=== PATIENT | female | born 1980 | race Caucasian/White ===

== ENCOUNTER 2016-06-18 13:19 | Emergency (ER) | payer OTHER ==
[~2016-06-18] VITALS: Ht 172.7 cm; Wt 97.2 kg
[~2016-06-18 13:19] MED LIST: ADDERALL15 MG PO; ADDERALL20 MG PO; ASPIRIN325 MG PO; AUGMENTIN500 MG PO; BENADRYL A12.5 MG/5 PO; BENTYL10 MG PO; GENTAK3.5 GM RIGHT EYE; LORTAB 5-325 M1 EACH PO; MEDROL DOSEPAK4 MG PO; MELATONIN5 M1 PO; MOBIC15 MG PO; NEURONTIN100 MG PO; PERCOCET 5/31 TABLET PO; PRENATAL TABLE1 EAC3 PO; SERTRALINE HCL25 MG PO; TRILEPTAL600 MG PO; ZANTAC150 MG PO
[2016-06-18] MEDS ORDERED: PERCOCET 5/31 TABLET PO (15:10)
[2016-06-18 16:00] VITALS: BP 114/72
== END 2016-06-18 16:15 | disposition home or self-care (01) ==
LOC: EME → EXP 13:19 → EME 13:19 → EDBD 13:19 → EXP 16:15
PROC: 0RSJXZZ Reposition Right Shoulder Joint, External Approach (ICD-10-PCS; principal; 2016-06-18)
DX: S43.084A Other dislocation of right shoulder joint, initial encounter (principal); W06.XXXA Fall from bed, initial encounter; Y93.89 Activity, other specified
CPT/HCPCS: 73030; 99281; 99285; J3010

== ENCOUNTER 2016-08-23 22:08 | Emergency (ER) | payer OTHER ==
[~2016-08-23] VITALS: Ht 172.7 cm; Wt 95.4 kg
[2016-08-24] MEDS ORDERED: NORCO 5/3251 TABLET PO (05:18)
[2016-08-24 07:37] VITALS: BP 136/70
== END 2016-08-24 07:38 | disposition home or self-care (01) ==
LOC: EME 22:08
PROC: 0RSJXZZ Reposition Right Shoulder Joint, External Approach (ICD-10-PCS; principal; 2016-08-24)
DX: S43.004A Unspecified dislocation of right shoulder joint, initial encounter (principal); Y09 Assault by unspecified means
CPT/HCPCS: 73030; 99281; 99285; J2405; J2550; J3010; S0020

== ENCOUNTER 2017-05-22 17:27 | Emergency (ER) | payer OTHER ==
[~2017-05-22] VITALS: Ht 172.7 cm; Wt 80.1 kg
[~2017-05-22 17:27] MED LIST changes: +NORCO 5/3251 TABLET PO
[2017-05-22 18:09] LABS: HEMOGLOBIN 14.5 G/DL (11.9-15.5); MCHC 34.5 G/DL (30.0-36.0); MCV 92.7 FL (83-99); PLATELET COUNT 241 K/uL (156-360); RBC DIS.WIDTH-CV 12.5 % (11.8-14.6); RBC DIS.WIDTH-SD 42.8 % (39-53); RED BLOOD COUNT 4.53 M/uL (3.80-5.20); WHITE BLOOD COUNT 8.6 K/uL (4.1-10.2)
[2017-05-22 18:18] LABS: ALBUMIN 4.1 g/dL (3.2-4.8); CHLORIDE 105 mEq/L (99-109); POTASSIUM 3.6 mEq/L (3.7-5.4); SODIUM 140 mEq/L (136-147)
[2017-05-22 18:20] LABS: GLUCOSE 106 mg/dL (70-99); TOTAL PROTEIN 7.4 g/dL (6.4-8.3)
[2017-05-22 18:22] LABS: TOTAL BILIRUBIN 0.8 mg/dL (0.0-1.0)
[2017-05-22 18:23] LABS: SERUM ETHYL ALCOHOL < 10 mg/dL
[2017-05-22 18:24] LABS: ALKALINE PHOSPHATASE 39 IU/L (3-129); CREATININE 0.8 mg/dL (0.6-1.3); GFR ESTIMATE (CALCULATED) > 59 mL/min/
[2017-05-22 18:25] LABS: UREA NITROGEN (BUN) 13 mg/dL (9-23)
[2017-05-22 18:26] LABS: AST (GOT) 14 IU/L (2-34)
[2017-05-22 18:27] LABS: ALT (GPT) 14 IU/L (3-49)
[2017-05-22 18:33] LABS: QUANTITATIVE HCG < 4.0 MIU/ML
[2017-05-23] MEDS ORDERED: AUGMENTIN875 MG PO (16:40)
[2017-05-23] MEDS ORDERED: ZOLOFT100 MG PO (16:43)
[2017-05-23 17:53] VITALS: BP 119/73
[2017-05-23] MEDS ORDERED: TRAZODONE HCL50 MG PO (19:16)
== END 2017-05-22 21:50 | disposition home or self-care (01) ==
LOC: EME 17:27 → ENRESERV 05-23 16:31 → EME 05-23 17:04 → 1WEST 05-23 17:04
PROVIDERS: Emergency Medicine
DX: F43.20 Adjustment disorder, unspecified (principal); F31.9 Bipolar disorder, unspecified; F12.20 Cannabis dependence, uncomplicated; Z04.6 Encounter for general psychiatric examination, requested by authority; F43.10 Post-traumatic stress disorder, unspecified
CPT/HCPCS: 80053; 81003; 84702; 85027; 90837; 99281; 99285; G0480

== ENCOUNTER 2017-05-23 12:23 | Inpatient (IN) | payer OTHER ==
[~2017-05-23] VITALS: Ht 172.7 cm; Wt 84.5 kg
[2017-05-23 12:56] LABS: HEMATOCRIT 42.9 % (36.0-46.0); HEMOGLOBIN 14.6 G/DL (11.9-15.5); MCH 31.9 PG (29.0-34.0); MCV 93.7 FL (83-99); PLATELET COUNT 241 K/uL (156-360); RBC DIS.WIDTH-CV 12.5 % (11.8-14.6); RBC DIS.WIDTH-SD 43.1 % (39-53); RED BLOOD COUNT 4.58 M/uL (3.80-5.20); WHITE BLOOD COUNT 6.5 K/uL (4.1-10.2)
[2017-05-23 13:07] LABS: CHLORIDE 106 mEq/L (99-109); SODIUM 138 mEq/L (136-147)
[2017-05-23 13:10] LABS: GLUCOSE 97 mg/dL (70-99); POTASSIUM 4.5 mEq/L (3.7-5.4); TOTAL PROTEIN 7.2 g/dL (6.4-8.3)
[2017-05-23 13:11] LABS: TOTAL BILIRUBIN 0.7 mg/dL (0.0-1.0)
[2017-05-23 13:12] LABS: SERUM ETHYL ALCOHOL < 10 mg/dL
[2017-05-23 13:13] LABS: ALKALINE PHOSPHATASE 39 IU/L (3-129); GFR ESTIMATE (CALCULATED) > 59 mL/min/
[2017-05-23 13:14] LABS: UREA NITROGEN (BUN) 13 mg/dL (9-23)
[2017-05-23 13:15] LABS: AST (GOT) 13 IU/L (2-34)
[2017-05-23 13:16] LABS: ALT (GPT) 12 IU/L (3-49)
[2017-05-23 14:25] LABS: AMPHETAMINE NEGATIVE (500 ng/mL); BARBITURATES NEGATIVE (200 ng/mL); BENZODIAZEPINES NEGATIVE (150 ng/mL); BUPRENORPHINE PRESUMPTIVE POSITIVE (10 ng/mL); COCAINE NEGATIVE (150 ng/mL); METHADONE NEGATIVE (200 ng/mL); METHAMPHETAMINE NEGATIVE (500 ng/mL); OPIATES (MORPHINE) NEGATIVE (100 ng/mL); OXYCODONE NEGATIVE (100 ng/mL); PHENCYCLIDINE NEGATIVE (25 ng/mL); PROPOXYPHENE NEGATIVE (300 ng/mL); THC CANNABINOIDS PRESUMPTIVE POSITIVE (50 ng/mL); TRICYCLIC ANTIDEPRESSANTS NEGATIVE (300 ng/mL)
[2017-05-23] MEDS ORDERED: AUGMENTIN875 MG PO (16:40)
[2017-05-23] MEDS ORDERED: ZOLOFT100 MG PO (16:43)
[2017-05-23 17:05] VITALS: BP 119/73
[2017-05-23] MEDS ORDERED: TRAZODONE HCL50 MG PO (19:16)
[2017-05-24 07:54] VITALS: BP 151/78
[2017-05-24 15:24] VITALS: BP 110/79
[2017-05-25 07:36] VITALS: BP 111/70
[2017-05-25 15:32] VITALS: BP 135/85
[2017-05-26 07:52] VITALS: BP 137/83
[2017-05-26] MEDS ORDERED: DIVALPROEX SOD250 MG PO (10:19)
== END 2017-05-26 13:57 | disposition home or self-care (01) | DRG 882 ==
LOC: EME 12:23 → 1WEST 15:01 → EDOF 15:01 → 1WEST 18:16
PROVIDERS: Emergency Medicine
DX: F43.29 Adjustment disorder with other symptoms (principal); R45.851 Suicidal ideations; F31.81 Bipolar II disorder; F12.90 Cannabis use, unspecified, uncomplicated; F14.90 Cocaine use, unspecified, uncomplicated; Z59.9 Problem related to housing and economic circumstances, unspecified
CPT/HCPCS: 80053; 81003; 84702; 84999; 85027; 90837; 97150 GO; 97166 GO; 97530 GO; 99281; 99285; G0480; Q0177